=== PATIENT | male | born 1985 | race Caucasian/White ===

== ENCOUNTER 2018-04-12 10:44 | Emergency (ER) | payer SELFPAY ==
--- NOTE | 2018-04-12 11:03 | EDPHY ---
General Time Seen by Provider: 04/12/18 10:53 Narrative: CHIEF COMPLAINT: Possible eye infection HISTORY OF PRESENT ILLNESS: Patient presents by private vehicle with complaints of right eye pain and right infection. Pain and redness started 10 days ago. He was seen 8 days ago in urgent care prescribed Cortisporin ophthalmic. He has been applying this 3 times daily but feels though it has gotten worse and has become more irritated than at 1st. He has difficulty opening the eye. He has clear drainage from the eye. No purulence. No headache. No fever. Blurred vision at times. He has no neck pain or stiffness. No signs of illness elsewhere. He does not were contacts or glasses. No trauma or injury. Tetanus is not up-to-date. No other associated complaints or modifying factors REVIEW OF SYSTEMS: 10 systems were reviewed and negative with the exception of the elements mentioned in the history of present illness. PCP: None SPECIALISTS: None PAST MEDICAL HISTORY: Denies PAST SURGICAL HISTORY: None SOCIAL HISTORY: Denies any tobacco use. Lives independently. FAMILY HISTORY: Noncontributory EXAMINATION: Vitals: Triage VS reviewed General Appearance: Alert, no distress. Well appearing. Head: normocephalic, atraumatic Eyes: Pupils equal and round. Significant right-sided conjunctival injection. No hyphema. No subconjunctival hemorrhage. No purulence. No intolerance of light. No pain in the right eye with consensual response. EOM symmetric. No nystagmus. Visual miller intact by confrontation ENT, Mouth: Mucous membranes moist. Airway patent Skin: Warm and dry, no rash. No periorbital cellulitis. DIFFERENTIAL DIAGNOSES: Including but not limited to conjunctivitis, blepharitis, corneal abrasion MDM: 10:50 a.m. Moderate right-sided conjunctivitis with no hyphema, subconjunctival hemorrhage or clinical evidence of acute iritis. All proceed with fluorescein exam. Pain medication ordered. He is in no acute distress. 11:30 a.m. Fluorescein exam reveals no uptake in any location. Lids were everted there is no foreign body. I do feel it is reasonable to transition from Cortisporin to Ocuflox. He will take 1-2 drops every 2-4 hours for the 1st 2 days. Then 2 drops every 4 hr for the next 5 days. I would also like him to follow up with tractor driver teamster tomorrow morning for definitive care. ED precautions for any worsening pain, difficulty opening his eye, surrounding redness, fever headache. He is comfortable this plan. I will be placed on eye patch. Discharged home stable condition. SUPERVISION: This patient was independently evaluated without direct involvement of or examination by the attending physician. CONSULTATION: None. Ophthalmology referral - History Smoking Status: Light smoker - Objective Vital Signs: Initial Vital Signs Temperature (C) 98.4 F 04/12/18 10:47 Heart Rate 102 H 04/12/18 10:47 Respiratory Rate 18 04/12/18 10:47 Blood Pressure 133/92 H 04/12/18 10:47 O2 Sat (%) 95 04/12/18 10:47 O2 Delivery Mode Room Air Allergies/Adverse Reactions: No Known Allergies Allergy (Unverified 04/12/18 10:51) Home Medications: Medication Instructions Recorded Polymyxin B Sulf/Trimethoprim 04/12/18 oxyCODONE HCL/ACETAMINOPHEN 1 each PO Q4-6PRN PRN #7 tablet 04/12/18 [Percocet 5-325 mg Tablet] Medications Given: Discontinued Medications Diphtheria/Tetanus/Acell Pertussis (Boostrix) 0.5 ml IM .ONCE ONE Stop: 04/12/18 11:05 Last Admin: 04/12/18 11:12 Dose: 0.5 ml Fluorescein Sodium (Bioglo) 1 mg OP EDNOW ONE Stop: 04/12/18 11:05 Last Admin: 04/12/18 11:18 Dose: 1 mg Ofloxacin (Ocuflox 0.3% Opht Drops Prepack) 1 btl TAKEHOME EDNOW ONE Stop: 04/12/18 11:05 Last Admin: 04/12/18 11:18 Dose: 1 btl Oxycodone/Acetaminophen (Percocet 5/325) 1 tab PO EDNOW ONE Stop: 04/12/18 11:05 Last Admin: 04/12/18 11:17 Dose: 1 tab Proparacaine HCl (Alcaine 0.5%) 1 drops OP EDNOW ONE Stop: 04/12/18 11:05 Last Admin: 04/12/18 11:19 Dose: 1 drop Departure - Departure Disposition: Home, Routine, Self-Care Clinical Impression: Conjunctivitis, right eye Qualifiers: Conjunctivitis type: acute Acute conjunctivitis type: unspecified Qualified Code(s): H10.31 - Unspecified acute conjunctivitis, right eye Condition: Good Instructions: Oxycodone/Acetaminophen (By mouth), Conjunctivitis (ED) Additional Instructions: 1. Ocuflox to right eye. 2 drops to the right eye every 2-4 hours for the 1st 2 days. Then transition to 2 drops in the right eye every 4 hr for 5 days. 2. Contact the on-call tractor driver teamster Dr. Jane tomorrow morning to be seen tomorrow without fail unless completely resolved 3. Pain medication as prescribed as needed 4. Ibuprofen 600 mg every 6-8 hours Referrals: Gemma Jane MD [Medical Doctor] - As per Instructions Prescriptions: oxyCODONE HCL/ACETAMINOPHEN [Percocet 5-325 mg Tablet] 1 each PO Q4-6PRN PRN #7 tablet PRN Reason: Pain, Breakthrough
[2018-04-12] MEDS ORDERED: OFLOXACIN 0.3% SOLN PREPACK OPHT.BTL TAKEHOME ONE (11:04)
[2018-04-12] MEDS ORDERED: TDAP ADULT 0.5 ML INJ (BOOSTRIX) IM ONE ×2 (11:04→11:05)
[2018-04-12] MEDS ORDERED: OXYCODONE/APAP 5/325 TAB PO ONE (11:04)
[2018-04-12] MEDS ORDERED: PROPARACAINE 0.5% 15 ML OPHT DROP OP ONE (11:04)
[2018-04-12] MEDS ORDERED: FLUORESCEIN SODIUM 1 MG STRIP OP ONE (11:04)
[2018-04-12 12:12] VITALS: BP 117/85
== END 2018-04-12 12:12 | disposition home or self-care (01) ==
DX: H10.31 Unspecified acute conjunctivitis, right eye (principal); Z23 Encounter for immunization